=== PATIENT | female | born 1965 | race Two or more races ===

== ENCOUNTER 2019-07-09 11:35 | Emergency (ER) | payer OTHER ==
[~2019-07-09] VITALS: Ht 175.3 cm; Wt 131.5 kg
[2019-07-09] MEDS ORDERED: NEXIUM 24HR20 M1 PO (12:22)
[2019-07-09] MEDS ORDERED: AMIODARONE HCL200 MG PO (12:22)
[2019-07-09] MEDS ORDERED: ISOSORBIDE DINI30 MG PO (12:23)
[2019-07-09] MEDS ORDERED: COUMADIN3 MG PO (12:23)
[2019-07-09] MEDS ORDERED: CARVEDILOL25 MG PO (12:23)
[2019-07-09] MEDS ORDERED: METFORMIN HCL500 M2 PO (12:23)
[2019-07-09] MEDS ORDERED: CORLANOR5 MG PO (12:23)
[2019-07-09] MEDS ORDERED: ALDACTONE50 MG PO (12:24)
[2019-07-09] MEDS ORDERED: ENTRESTO 24 MG1 EACH PO (12:25)
[2019-07-09] MEDS ORDERED: INVOKANA100 MG PO (12:25)
[2019-07-09] MEDS ORDERED: SINGULAIR10 MG PO (12:25)
[2019-07-09] MEDS ORDERED: TORSEMIDE20 MG PO (12:25)
[2019-07-09] MEDS ORDERED: LIPITOR40 MG PO (12:26)
[2019-07-09] MEDS ORDERED: XOPENEX0.63 MG/3 IH (12:26)
[2019-07-09] MEDS ORDERED: SYNTHROID150 MCG PO (12:26)
[2019-07-09] MEDS ORDERED: VITAMIN D400 UNI2 PO (12:27)
[2019-07-09] MEDS ORDERED: FLOVENT DISKU250 MCG IH (12:27)
== END 2019-07-09 19:30 | disposition home or self-care (01) ==
LOC: ER 11:35
DX: J45.901 Unspecified asthma with (acute) exacerbation (principal)